=== PATIENT | female | born 1955 | race Caucasian/White ===

== ENCOUNTER 2017-09-17 14:52 | Emergency (ER) | payer OTHER ==
[~2017-09-17] VITALS: Ht 157.5 cm; Wt 53.1 kg
[2017-09-17 14:55] VITALS: BP_SYST 137
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
[2017-09-17] MEDS ORDERED: DEXTROSE 50% JECT 50 ML DISP.SYRIN ONE (15:08)
[2017-09-17] MEDS ORDERED: DEXTROSE 50% JECT 50 ML DISP.SYRIN IVP ONE (15:15)
--- NOTE | 2017-09-17 15:23 | NUR ---
Placed in room 1 . Placed on academic manager, blood pressure machine and pulse oximeter. To gown for exam. Side rails up. Report given to Srinivasan BROWN.
--- NOTE | 2017-09-17 15:25 | NUR ---
Dr. Roldan at bedside to assess pt.
--- NOTE | 2017-09-17 15:26 | NUR ---
Note rhodaone in EDM - 09/17/17 at 2047 by [email or web address] Patient given written and verbal discharge instructions and verbalizes understanding. ER discussed with patient the results and treatment provided. Patient in stable condition. ID arm band removed. no rx given. Patient educated on pain management and to follow up with PMD in 2-3 days. Pain Scale 0/10 Opportunity for questions provided and answered.
--- NOTE | 2017-09-17 15:27 | NUR ---
Pt report received from KEVIN Valentine. Pt AAOx3, denies c/o pain or discomfort, no needs verbalized at this time.
--- NOTE | 2017-09-17 16:01 | NUR ---
Patient given a CCHO meal at bedside.
[2017-09-17 16:44] LABS: CALCIUM 9.3 mg/dL (8.4-11.0); CREATININE 0.55 mg/dL (0.55-1.30); POTASSIUM 3.5 mmol/L (3.5-5.1)
[2017-09-17 17:26] VITALS: BP_SYST 137
--- NOTE | 2017-09-17 17:26 | NUR ---
Patient given written and verbal discharge instructions and verbalizes understanding. ER MD discussed with patient the results and treatment provided. Patient in stable condition. ID arm band removed. no rx given. Patient educated on pain management and to follow up with PMD in 2-3 days. Pain Scale 0/10 Opportunity for questions provided and answered.
== END 2017-09-17 17:26 | disposition home or self-care (01) ==
LOC: SED 14:52
DX: E11.649 Type 2 diabetes mellitus with hypoglycemia without coma (principal); I10 Essential (primary) hypertension; Z88.0 Allergy status to penicillin; Z88.2 Allergy status to sulfonamides
CPT/HCPCS: 36415; 80048; 82962; 96374; 99284